=== PATIENT | female | born 1955 | race Caucasian/White ===

== ENCOUNTER 2019-03-27 07:51 | Outpatient (CLI) | payer BC ==
[2019-03-27] MEDS ORDERED: Gadobenate Dimeglumine 529 MG/1 ML (20ML VIAL) ONE (09:00)
--- NOTE | 2019-03-27 12:22 | MRI ---
MRI BRAIN WITH AND WITHOUT CONTRAST: Date: 03/27/19 INDICATION: Malignant neoplasm left female breast. Secondary malignant neoplasm of liver. Headaches and dizziness . Breast cancer with liver mets. Comparison made to MRI brain dated 10/08/16. FINDINGS: Ventricles have normal size and position. No evidence of restricted diffusion. There are scattered white matter hyperintensities seen in both cerebral hemispheres on FLAIR sequence . These are stable from the prior exam of 2017 and would be most consistent with mild chronic ischemi c white matter change. No evidence of abnormal enhancement. Intracranial internal carotid arteries and cerebral arteries show expected flow-voids. Dural venous s inuses appear patent. Paranasal sinuses show mucosal retention cyst in the left maxillary antrum deon uring 2.4 cm. IMPRESSION: 1. There are mild chronic ischemic white matter changes which are stable when compared to exam of . 2. No evidence of metastatic lesion identified. 3. Mucus retention cyst in left maxillary antrum. This is a stable finding when compared to the 2017 exam. POS: [facility]
== END 2019-03-27 07:52 | disposition home or self-care (01) ==
LOC: SCSMRI 07:51
PROVIDERS: ATTEND Internal Medicine Hematology & Oncology
DX: C50.112 Malignant neoplasm of central portion of left female breast (principal); C78.7 Secondary malignant neoplasm of liver and intrahepatic bile duct; R42 Dizziness and giddiness; R51 Headache
CPT/HCPCS: 70553; 82565

== ENCOUNTER 2023-04-03 08:45 | Outpatient (CLI) | payer BC | END 2023-04-03 08:46 | disposition home or self-care (01) | LOC: PET 08:45 | PROVIDERS: ATTEND Internal Medicine Hematology & Oncology | DX: C50.112 Malignant neoplasm of central portion of left female breast (principal); C78.7 Secondary malignant neoplasm of liver and intrahepatic bile duct; R59.0 Localized enlarged lymph nodes | CPT/HCPCS: 78815; A9552 ==

== ENCOUNTER 2023-04-24 07:43 | Outpatient (CLI) | payer BC ==
[2023-04-24] MEDS ORDERED: Magnevist 469MG/ML 20 ML VIAL ONE (09:20)
== END 2023-04-24 07:44 | disposition home or self-care (01) ==
LOC: BICMRI 07:43
PROVIDERS: ATTEND Internal Medicine Hematology & Oncology
DX: C50.112 Malignant neoplasm of central portion of left female breast (principal); C78.7 Secondary malignant neoplasm of liver and intrahepatic bile duct; R16.1 Splenomegaly, not elsewhere classified; Z90.89 Acquired absence of other organs
CPT/HCPCS: 74183

== ENCOUNTER 2023-11-19 08:45 | Outpatient (CLI) | payer BC | END 2023-11-19 08:46 | disposition home or self-care (01) | LOC: PET 08:45 | PROVIDERS: ATTEND Internal Medicine Hematology & Oncology | DX: C50.112 Malignant neoplasm of central portion of left female breast (principal); C78.7 Secondary malignant neoplasm of liver and intrahepatic bile duct | CPT/HCPCS: 78815; A9552 ==

== ENCOUNTER 2023-12-19 08:55 | Day surgery (SDC) | payer BC ==
[2023-12-19] MEDS ORDERED: Sodium Chloride 0.9% 0 ML ONE (09:16)
[2023-12-19] MEDS ORDERED: Sodium Bicarbonate 2.5 MEQ/5 ML SDV ONE (09:16)
[2023-12-19 09:36] LABS: INR-International Normal Ratio 1.1; Prothrombin Time 13.7 sec (12.0-14.7)
[2023-12-19 09:37] LABS: PTT 34.5 sec (22.9-36.1)
[2023-12-19 09:38] LABS: Reflex for Review?? YES
[2023-12-19 09:39] LABS: Hematocrit 36.8 % (36.0-47.0); Hemoglobin 12.6 g/dL (12.0-16.0); Mean Corpuscular HGB CONC 34.2 g/dL (32.0-36.0); Mean Corpuscular Hemoglobin 36.3 pg (27.0-31.0); Mean Corpuscular Volume 106.1 fL (78.0-98.0); Mean Platelet Volume 11.1 fL (7.4-10.4); Platelet Count 58 10x3/uL (130-400); RBC Distribution Width 17.4 % (11.5-14.5); Red Blood Cell (RBC) Count 3.47 mill/uL (4.20-5.40)
[2023-12-19 10:33] LABS: Eosinophils 2 % (0-10); Giant Platelets 1.7 % (0-5); Large Platelets 8.5 % (0-5); Lymphocytes 57 % (21-51); Macrocytosis MODERATE=16-30 cells HPF (0-5); Monocytes 3 % (0-10); Neutrophil 36 % (42-75); Platelet Adequacy Comment Significant Decrease; Schistocytes SLIGHT = 2-5 cells HPF (0-1)
== END 2023-12-19 10:35 | disposition home or self-care (01) ==
LOC: SPEC 08:55
PROVIDERS: ATTEND Internal Medicine Hematology & Oncology
DX: C50.112 Malignant neoplasm of central portion of left female breast (principal); C78.7 Secondary malignant neoplasm of liver and intrahepatic bile duct; D72.819 Decreased white blood cell count, unspecified; Z53.09 Procedure and treatment not carried out because of other contraindication; I10 Essential (primary) hypertension; E11.9 Type 2 diabetes mellitus without complications; K21.9 Gastro-esophageal reflux disease without esophagitis; F32.A Depression, unspecified; F41.9 Anxiety disorder, unspecified; Z79.899 Other long term (current) drug therapy; Z88.2 Allergy status to sulfonamides; Z88.8 Allergy status to other drugs, medicaments and biological substances; Z17.0 Estrogen receptor positive status [ER+]; Z96.659 Presence of unspecified artificial knee joint; Z98.890 Other specified postprocedural states; Z87.891 Personal history of nicotine dependence
CPT/HCPCS: 36415; 80053; 85025; 85060; 85610; 85730; J7030

== ENCOUNTER 2024-01-20 08:56 | Day surgery (SDC) | payer BC ==
[2024-01-08 08:19] LABS: Hematocrit 32.5 % (36.0-47.0); Hemoglobin 10.8 g/dL (12.0-16.0); Mean Corpuscular HGB CONC 33.2 g/dL (32.0-36.0); Mean Corpuscular Hemoglobin 35.6 pg (27.0-31.0); Mean Corpuscular Volume 107.3 fL (78.0-98.0); Mean Platelet Volume 10.4 fL (7.4-10.4); Platelet Count 92 10x3/uL (130-400); Red Blood Cell (RBC) Count 3.03 mill/uL (4.20-5.40)
[2024-01-08 08:20] LABS: INR-International Normal Ratio 1.1; PTT 32.9 sec (22.9-36.1)
[2024-01-08 08:56] LABS: Band 3 % (5-11); Eosinophils 1 % (0-10); Lymphocytes 33 % (21-51); Monocytes 1 % (0-10); Neutrophil 61 % (42-75); Platelet Adequacy Comment Platelets Decreased; Poikilocytosis SLIGHT = 6-15 cells HPF (0-5); Polychromasia SLIGHT = 2-3 cells HPF (0-2); Schistocytes SLIGHT = 2-5 cells HPF (0-1)
[2024-01-20 09:33] LABS: Hematocrit 28.5 % (36.0-47.0); Hemoglobin 9.8 g/dL (12.0-16.0); Mean Corpuscular HGB CONC 34.4 g/dL (32.0-36.0); Mean Corpuscular Hemoglobin 35.9 pg (27.0-31.0); Mean Corpuscular Volume 104.4 fL (78.0-98.0); Mean Platelet Volume 10.9 fL (7.4-10.4); Platelet Count 60 10x3/uL (130-400); RBC Distribution Width 17.1 % (11.5-14.5); Red Blood Cell (RBC) Count 2.73 mill/uL (4.20-5.40)
[2024-01-20 09:53] LABS: Band 4 % (5-11); Eosinophils 3 % (0-10); Large Platelets 4.8 % (0-5); Lymphocytes 27 % (21-51); Macrocytosis SLIGHT = 6-15 cells HPF (0-5); Monocytes 11 % (0-10); Neutrophil 54 % (42-75); Platelet Adequacy Comment Significant Decrease; Reactive Lymphocytes 1 % (0-10)
== END 2024-01-20 12:57 | disposition home or self-care (01) ==
LOC: SPEC 08:56
PROVIDERS: ATTEND Internal Medicine Hematology & Oncology
DX: C50.112 Malignant neoplasm of central portion of left female breast (principal); Z53.8 Procedure and treatment not carried out for other reasons; D72.819 Decreased white blood cell count, unspecified; C78.7 Secondary malignant neoplasm of liver and intrahepatic bile duct; Z88.2 Allergy status to sulfonamides
CPT/HCPCS: 36415; 85025; 85610; 85730